=== PATIENT | female | born 1995 | race American Indian/Alaskan Native ===

== ENCOUNTER 2016-05-08 21:49 | Emergency (ER) | payer MEDICAID, OTHER ==
[2016-05-08 22:00] VITALS: BP 130/72
[2016-05-08 22:54] LABS: Anion Gap 18 mmol/L; Blood Urea Nitrogen 7 mg/dL (7-17); Carbon Dioxide 22 mmol/L (22-30); Chloride 98.7 mmol/L (98-107); Glucose 77 mg/dL (65-100); Potassium 3.8 mmol/L (3.6-5.0); Sodium 135 mmol/L (137-145)
[2016-05-08 22:57] LABS: Bacteria,Urine 1+ /HPF (Negative); Bilirubin,Urine NEG (Negative); Blood,Urine NEG (Negative); Ketones,Urine TR mg/dL (Negative); Leukocyte Esterase,Urine SM (Negative); Mucus,Urine 3+ /HPF; Nitrite,Urine NEG (Negative); Urobilinogen,Urine < 2.0 mg/dL (<2.0)
--- NOTE | 2016-05-08 23:00 | Ultrasound Report ---
FINAL REPORT EXAM: US OB \T\gt; = 14 WEEKS FETUS HISTORY: pelvic pain TECHNIQUE: Real-time sonography was performed of the gravid uterus and images are submitted for interpretation. PRIORS: None. FINDINGS: Detailed anatomic survey was not performed. There is a single fetus in the uterus in a breech presentation. The placenta is posterior and the os is clear. The cervix is long and closed measuring 4.0 cm. There is a normal amount of amniotic fluid. The heart is beating at a rate of 152 beats per minute. Biometric measurements give an estimated gestational age of 19 weeks 2 days. IMPRESSION: 1. Single, live intrauterine gestation, estimated gestational age 19 weeks 2 days for an estimated date of confinement of 09/30/2016. 2. Breech presentation
[2016-05-08 23:26] LABS: Hematocrit 33.9 % (30.3-42.9); Hemoglobin 10.6 gm/dl (10.1-14.3); Mean Corpuscular HGB Conc 31 % (30-34); Platelet Count 244 K/mm3 (140-440); Red Blood Count 4.86 M/mm3 (3.65-5.03); Red Cell Distribution Width 17.3 % (13.2-15.2); White Blood Count 10.9 K/mm3 (4.5-11.0)
[2016-05-08 23:27] LABS: Mean Corpuscular Hemoglobin 22 pg (28-32); Mean Corpuscular Volume 70 fl (79-97)
--- NOTE | 2016-05-09 08:06 | ED Elopement Review ---
ED Pt Elopement review - Results review Lab results: Laboratory Tests 05/08/16 05/08/16 05/08/16 10:20 22:07 22:07 WBC RBC Hgb Hct MCV MCH MCHC RDW Plt Count Sodium 135 L Potassium 3.8 Chloride 98.7 Carbon Dioxide 22 Anion Gap 18 BUN 7 Creatinine 0.5 L Estimated GFR > 60 BUN/Creatinine Ratio 14.00 Glucose 77 Calcium 9.0 HCG, Quant 5136 H Urine Color [place] Urine Turbidity Cloudy Urine pH 5.0 Ur Specific [place] 1.028 Urine Protein 30 mg/dl Urine Glucose (UA) Neg Urine Ketones Tr Urine Blood Neg Urine Nitrite Neg Urine Bilirubin Neg Urine Urobilinogen < 2.0 Ur Leukocyte Esterase Sm Urine WBC (Auto) 11.0 H Urine RBC (Auto) 1.0 U Epithel Cells (Auto) 44.0 H Urine Bacteria (Auto) 1+ Urine Mucus 3+ Blood Type Antibody Screen Ord Rhogam Gestat 05/08/16 05/08/16 22:07 Unknown WBC 10.9 RBC 4.86 Hgb 10.6 Hct 33.9 MCV 70 L MCH 22 L MCHC 31 RDW 17.3 H Plt Count 244 Sodium Potassium Chloride Carbon Dioxide Anion Gap BUN Creatinine Estimated GFR BUN/Creatinine Ratio Glucose Calcium HCG, Quant Urine Color Urine Turbidity Urine pH Ur Specific [place] Urine Protein Urine Glucose (UA) Urine Ketones Urine Blood Urine Nitrite Urine Bilirubin Urine Urobilinogen Ur Leukocyte Esterase Urine WBC (Auto) Urine RBC (Auto) U Epithel Cells (Auto) Urine Bacteria (Auto) Urine Mucus Blood Type O POSITIVE Antibody Screen Negative Ord [facility] Cancelled - Call Back decision Pt Call Back Decision: Pt to F/U with PMD (see OB)
== END 2016-05-09 00:15 | disposition left against medical advice (07) ==
LOC: ED 21:49
DX: O26.892 Other specified pregnancy related conditions, second trimester (principal); R10.2 Pelvic and perineal pain; Z3A.15 15 weeks gestation of pregnancy; Z53.21 Procedure and treatment not carried out due to patient leaving prior to being seen by health care provider
CPT/HCPCS: 36415; 76805; 80048; 81001; 84702; 85027; 86850; 86900; 86901